=== PATIENT | male | born 1950 | race Caucasian/White ===

== ENCOUNTER → 2016-07-27 | Day surgery (SDC) | payer MEDICARE, BC | LOC: MSO 09:38 | DX: K21.9 Gastro-esophageal reflux disease without esophagitis (principal); K44.9 Diaphragmatic hernia without obstruction or gangrene; Z87.891 Personal history of nicotine dependence; I10 Essential (primary) hypertension | CPT/HCPCS: 00740; J7120 ==

== ENCOUNTER 2017-09-18 13:32 | Emergency (ER) | payer MEDICARE, BC ==
[~2017-09-18] VITALS: Ht 162.6 cm; Wt 79.5 kg
[2017-09-18] MEDS ORDERED: ATORVASTATIN CA40 MG PO (14:10)
[2017-09-18] MEDS ORDERED: NORVASC 10MG10 MG PO (14:11)
[2017-09-18] MEDS ORDERED: DHA PO (14:11)
[2017-09-18] MEDS ORDERED: ADULT ASPIRIN R81 MG PO (14:11)
[2017-09-18] MEDS ORDERED: MULTI-VITAMINS1 TA1 PO (14:12)
[2017-09-18 14:20] LABS: BASO # 0.1 (0.02-0.10); EOS # 0.2 (0.04-0.40); EOS % 2.5 % (0.0-4.0); HEMATOCRIT 45.2 % (42.0-52.0); LYMPH# 1.6 (1.50-4.00); MEAN CELL VOLUME 89 fl (78-100); MEAN CORPUSCULAR HEMOGLOBIN 30 pg (27-31); MEAN CORPUSCULAR HGB CONC 33 g/dL (33-37); MEAN PLATELET VOLUME 11.7 fl (7.4-10.4); MONO # 0.8 (0.20-0.80); NEU # 3.9 (1.40-6.50); PLATELET COUNT 191 K/mm3 (130-400); RED BLOOD COUNT 5.08 M/mm3 (4.20-5.60); RED CELL DISTRIBUTION WIDTH 13.1 % (11.5-14.5); WHITE BLOOD COUNT 6.5 K/mm3 (4.8-10.8)
[2017-09-18 14:28] LABS: ALBUMIN 4.3 g/dL (3.5-5.0); BUN/CREATININE RATIO 14.5 (6.0-26.0); CALCIUM 9.2 mg/dL (8.4-10.2); POTASSIUM 3.8 mmol/L (3.6-5.0); TOTAL BILIRUBIN 0.8 mg/dL (0.2-1.3); TOTAL PROTEIN 7.6 g/dL (6.3-8.2)
[2017-09-18] MEDS ORDERED: NITROGLYCERIN0.4 M1 SL (15:14)
[2017-09-18 15:49] VITALS: BP 121/83
== END 2017-09-18 15:49 | disposition home or self-care (01) ==
LOC: ED 13:32
PROVIDERS: Family Medicine
DX: R07.9 Chest pain, unspecified (principal); K21.9 Gastro-esophageal reflux disease without esophagitis; I10 Essential (primary) hypertension; E78.5 Hyperlipidemia, unspecified; I25.10 Atherosclerotic heart disease of native coronary artery without angina pectoris; Z95.5 Presence of coronary angioplasty implant and graft; I25.2 Old myocardial infarction; Z79.82 Long term (current) use of aspirin; Z79.899 Other long term (current) drug therapy; R42 Dizziness and giddiness; R53.1 Weakness

== ENCOUNTER → 2019-02-09 | Outpatient (CLI) | payer MEDICARE, BC ==
[~2019-02-09] VITALS: Ht 162.6 cm; Wt 79.5 kg
[~2019-02-09] MED LIST: ADULT ASPIRIN R81 MG PO; ATORVASTATIN CA40 MG PO; DHA PO; MULTI-VITAMINS1 TA1 PO; NITROGLYCERIN0.4 M1 SL; NORVASC 10MG10 MG PO
[2019-02-09 13:49] VITALS: BP 105/72
== END ==
LOC: AMSURD 13:43
DX: Z98.890 Other specified postprocedural states (principal)

== ENCOUNTER → 2019-02-14 | Outpatient (CLI) | payer MEDICARE, BC ==
--- NOTE | 2019-02-14 14:40 | NUR ---
One running suture removed from incision to left side of neck. Edges well approximated. No redness, drainage, or edema. No follow up with surgeon scheduled per patient.
[2019-02-14 14:50] VITALS: BP 126/90
== END ==
LOC: AMSURD 13:57
DX: Z48.02 Encounter for removal of sutures (principal)

== ENCOUNTER → 2019-09-29 | Outpatient (CLI) | payer MEDICARE, BC ==
[2019-02-14 14:50] VITALS: BP 126/90
== END ==
LOC: LAB 09:20
DX: Z01.812 Encounter for preprocedural laboratory examination (principal); U07.1 COVID-19

== ENCOUNTER → 2020-02-12 | Outpatient (CLI) | payer MEDICARE, BC ==
[2019-02-14 14:50] VITALS: BP 126/90
[2020-02-12 11:33] LABS: HEMATOCRIT 30.7 % (42.0-52.0); HEMOGLOBIN 9.4 g/dL (13.5-18.0); MEAN CELL VOLUME 95 fl (78-100); MEAN CORPUSCULAR HEMOGLOBIN 29 pg (27-31); MEAN CORPUSCULAR HGB CONC 31 g/dL (33-37); MEAN PLATELET VOLUME 10.2 fl (7.4-10.4); PLATELET COUNT 255 K/mm3 (130-400); RED BLOOD COUNT 3.22 M/mm3 (4.20-5.60); RED CELL DISTRIBUTION WIDTH 15.6 % (11.5-14.5); WHITE BLOOD COUNT 6.5 K/mm3 (4.8-10.8)
[2020-02-12 11:37] LABS: ALBUMIN 3.6 g/dL (3.4-4.8); POTASSIUM 3.8 mmol/L (3.5-5.1)
[2020-02-12 11:38] LABS: CALCIUM 8.7 mg/dL (8.3-10.5)
[2020-02-12 11:40] LABS: TOTAL PROTEIN 7.7 g/dL (6.2-8.1)
[2020-02-12 11:41] LABS: TOTAL BILIRUBIN 0.7 mg/dL (0.2-1.2)
[2020-02-12 11:54] LABS: BAND 2 % (0-10); LYMPHOCYTE 7 % (20-51); MONOCYTE 15 % (3-10); NEUTROPHILS 75 % (42-75)
[2020-02-12 11:55] LABS: OVALOCYTES 1+
== END ==
LOC: RAD 11:05
DX: R06.02 Shortness of breath (principal); Z85.89 Personal history of malignant neoplasm of other organs and systems